=== PATIENT | male | born 1950 | race Two or more races ===

== ENCOUNTER 2021-01-16 10:00 | Emergency (ER) | payer OTHER ==
[~2021-01-16] VITALS: Ht 170.2 cm; Wt 81.2 kg
[~2021-01-16 10:00] MED LIST: AMOX1TAB12 PO; COMADIN; COUMADIN4 MG; LIPITOR20 MG; LISINOPRIL10 MG PO; SYNTHROID100 MCG; SYNTROID; SYNVASTATIN
[2021-01-16] MEDS ORDERED: SYNTHROID112 MCG (10:22)
[2021-01-16] MEDS ORDERED: TOPROL XL25 M1 (10:22)
[2021-01-16] MEDS ORDERED: ALTACE10 MG (10:22)
[2021-01-16] MEDS ORDERED: ULTRAM50 MG PO (12:48)
== END 2021-01-16 13:07 | disposition home or self-care (01) ==
LOC: ER 10:00
DX: S90.32XA Contusion of left foot, initial encounter (principal); S80.02XA Contusion of left knee, initial encounter; W18.41XA Slipping, tripping and stumbling without falling due to stepping on object, initial encounter; Y93.01 Activity, walking, marching and hiking; Y92.018 Other place in single-family (private) house as the place of occurrence of the external cause; Y99.8 Other external cause status

== ENCOUNTER 2021-08-24 07:12 | Outpatient (CLI) | payer OTHER ==
[~2021-08-24 07:12] MED LIST changes: +ALTACE10 MG; +SYNTHROID112 MCG; +TOPROL XL25 M1; +ULTRAM50 MG PO
== END 2021-08-24 07:19 | disposition home or self-care (01) ==
LOC: NUCLEAR 07:12
PROVIDERS: ATTEND Internal Medicine Cardiovascular Disease
DX: I50.1 Left ventricular failure, unspecified (principal)
CPT/HCPCS: 78452; 93017; A9500

== ENCOUNTER 2021-11-20 07:26 | Outpatient (CLI) | payer OTHER | END 2021-11-20 13:56 | disposition home or self-care (01) | LOC: NUCLEAR 07:26 | PROVIDERS: ATTEND Internal Medicine | DX: I83.893 Varicose veins of bilateral lower extremities with other complications (principal); I87.2 Venous insufficiency (chronic) (peripheral) ==

== ENCOUNTER 2023-04-04 07:07 | Outpatient (CLI) | payer OTHER | END 2023-04-04 07:08 | disposition home or self-care (01) | LOC: NUCLEAR 07:07 | PROVIDERS: ATTEND Internal Medicine Cardiovascular Disease | DX: I25.10 Atherosclerotic heart disease of native coronary artery without angina pectoris (principal) | CPT/HCPCS: 78452; 93017; A9500 ==